=== PATIENT | male | born 1945 | race Caucasian/White ===

== ENCOUNTER → 2017-04-09 | Outpatient (CLI) | payer BC ==
[~2017-04-09] MED LIST: ATOR40TA PO; ATOR40TA59 PO; CHOL20002 PO; GLIM4TAB PO; GLIM4TAB2 PO; INSU100C4 SQ; INSU100I13 SQ; IOHEXOL 180 MG/ML 10 ML VIAL. ONE; LATA2.5D3 OP; LISI40TA PO; METF1000 PO; METF500T9 PO; PIOG30TA3 PO; PIOG30TA41 PO; methylPREDNISolone ACETATE 40 MG/ML VIAL. ONE
--- NOTE | 2017-04-09 18:30 | PAIN ---
DATE OF SERVICE: 04/09/2017 DIAGNOSES: 1. Lumbar radiculopathy. 2. Right hip joint pain with osteoarthritis. HISTORY OF PRESENT ILLNESS: The patient is a 71-year-old male who returns for followup status post right hip joint injection with about 60% improvement in the right hip, still significant pain in the back radiating to the posterior gluteus, posterior thigh, posterior lower leg to the ankle on the right side. The patient reports it is a 5 on a scale of 10 at its worst, average and at its least and is a 5 today. The patient reports aching, sharp, tight, dull, shooting, on and off intensity; worse with walking, standing, changing positions; better with lying down. Does not have any difficulty sleeping at night. He sleeps on his back and is sleeping for 8 hours without difficulty. The patient reports no new motor or sensory deficits, no new bowel or bladder incontinence but still significant pain with ambulation as noted. PHYSICAL EXAMINATION: VITAL SIGNS: Today, the patient's blood pressure is 129/73, pulse 77, respirations 18, temperature 98.5 degrees Fahrenheit. Height is 6 feet 4 inches, weight is 297 pounds. GENERAL: The patient is awake, alert, oriented, appropriate, very pleasant demeanor. HEENT: Head shows normocephalic, atraumatic. Extraocular movements are intact, symmetrical. Oral cavity: Mucous membranes moist and pink. Dentition is intact. NECK: Shows anterior throat supple without palpable lymphadenopathy noted. Swallow reflex is symmetrical. CHEST: Shows normal on inspection. Breath sounds are clear to auscultation bilaterally. HEART: Shows S1, S2 clear. ABDOMEN: Soft, nontender, nondistended. No palpable organomegaly. There is no rebound or guarding demonstrated. BACK: The patient's back shows spine grossly in midline. Normal appearing thoracic kyphosis and lumbar lordotic curvature. Lumbar paraspinous muscle shows some moderate tenderness with palpation, but symmetrical on inspection. Diffusely tender only in the low lumbar distribution, slightly more on the right side, but again without trigger points or radiation. No tenderness over the spinous processes, sacrum or sacroiliac regions. The patient has full rotational motion of lumbar spine without difficulty laterally as well as extension and flexion. EXTREMITIES: The patient's lower extremities show deep tendon reflexes 1+ in the patellar and tendo calcaneus tendons. Motor exam is strong with 5/5 dorsiflexion, extension, quadriceps and hamstring flexion. Peripheral pulses are 1+ posterior tibial. No peripheral edema is noted bilaterally. Options were discussed with the patient. The patient's old chart was reviewed as his current medication regimen and updated. Current review of systems is updated today as well. We will proceed with a lumbar epidural steroid injection today with fluoroscopic guidance. Risks were discussed including but not limited to bleeding, infection, possibility of epidural hematoma and subsequent neurological compromise, dural puncture, headaches, spinal cord and/or nerve damage, side effects of steroid medication and poor results regarding pain control. The patient understands and wished to proceed. The patient will return to clinic in approximately 2 weeks for followup. He was counseled on return appointment, activity level and side effects to be aware of. DIAGNOSES: 1. Lumbar radiculopathy. 2. Right hip joint pain with osteoarthritis. PROCEDURE: Lumbar epidural steroid injection, translaminar approach L5-S1 level using C-arm fluoroscopic guidance under sterile prep and drape using local anesthetic. MEDICATION INJECTED: A total of 120 mg Depo-Medrol plus 10 mL of preservative-free normal saline and 2 mL of Isovue for contrast. CONDITION AT DISCHARGE: Stable. The patient tolerated the procedure well, had no complications. ZACH KERR MD DR: SEDRICK/madhu JOB#: [id number] / [id number]
== END ==
LOC: MERGE 08:58 → PNCL 08:58
PROVIDERS: ATTEND Anesthesiology
DX: M54.16 Radiculopathy, lumbar region (principal); M16.11 Unilateral primary osteoarthritis, right hip
CPT/HCPCS: 62323; J1030

== ENCOUNTER → 2017-04-23 | Outpatient (CLI) | payer BC ==
[~2017-04-23] MED LIST changes: -IOHEXOL 180 MG/ML 10 ML VIAL. ONE; -methylPREDNISolone ACETATE 40 MG/ML VIAL. ONE
--- NOTE | 2017-04-23 11:21 | PAIN ---
DATE OF SERVICE: 04/23/2017 DIAGNOSES: 1. Lumbar radiculopathy. 2. Right hip joint pain with osteoarthritis. HISTORY OF PRESENT ILLNESS: The patient is a 71-year-old male who returns for followup status post right hip joint injection as well as lumbar epidural steroid injection. The patient reports after the epidural steroid injection, he has had 100% relief following about 1 day after the injection. The patient reports he is very pleased with the progress. He has been increasing the activity significantly with no pain whatsoever. The patient is sleeping well at night. No pain in the low back or legs, his right leg is completely resolved and he is very pleased. The patient reports he is sleeping well, has increased his activity, he has been going to the gym once again to the [facility], increased his activity gradually slowly but keeps testing it without any pain whatsoever. The patient reports his pain level is zero at all times average, worst and least. The patient reports it is zero today. No pain left in the low back or right leg. The patient reports no bowel or bladder incontinence or other complaints. PHYSICAL EXAMINATION: VITAL SIGNS: The patient's blood pressure 123/71, pulse 79, respirations 18, temperature is 98.8 degrees Fahrenheit, height is 6 feet 4 inches, weight is 292 pounds. GENERAL: The patient is awake, alert, oriented, appropriate, very pleasant demeanor. HEENT: Head shows normocephalic, atraumatic. Extraocular movements are intact, symmetrical. Oral cavity shows mucous membranes moist and pink. NECK: Shows anterior throat is supple. CHEST: Shows breath sounds clear to auscultation bilaterally. HEART: Shows S1, S2 clear. ABDOMEN: Soft, nontender, nondistended. BACK: Shows spine grossly midline. Normal appearing lumbar lordotic curvature. Lumbar paraspinous musculature shows symmetrical on inspection with palpation shows only very minimal tenderness with deep palpation only very mildly. Full rotational motion is demonstrated both laterally as well as extension and flexion of lumbar spine without pain or difficulty reported. EXTREMITIES: Lower extremities show deep tendon reflexes 1+ in the patellar and tendo calcaneus tendons are equal. Motor exam is strong with 5/5 dorsiflexion, extension, quadriceps and hamstring flexion and equal bilaterally. Options were discussed with the patient. The patient's old chart was reviewed as his current medication regimen updated. Current review of systems is updated today as well. We will hold on any further injections at this time as the patient is doing quite well. Encouraged him to increase his activity as tolerated, gradually and cautiously but to do what he feels comfortable. Also discussed increased activity at the patient's gym with a stationary bicycle as well as treadmill, which he has been doing and will increase this as tolerated. The patient will return to clinic on an as needed basis at this time. ZACH KERR MD DR: SEDRICK/madhu JOB#: [id number] / [id number]
== END | disposition home or self-care (01) ==
LOC: PNCL 08:47
PROVIDERS: ATTEND Anesthesiology
DX: M54.16 Radiculopathy, lumbar region (principal); M25.551 Pain in right hip
CPT/HCPCS: G0463

== ENCOUNTER → 2017-10-02 | Outpatient (CLI) | payer BC | END | disposition home or self-care (01) | LOC: RAD 08:01 | DX: M17.12 Unilateral primary osteoarthritis, left knee (principal); M25.462 Effusion, left knee; G89.29 Other chronic pain | CPT/HCPCS: 73721; 77073 ==

== ENCOUNTER → 2017-11-04 | Outpatient (CLI) | payer BC ==
[2017-11-04 09:54] LABS: PARTIAL THROMBOPLASTIN TIME 29 SEC (24-38); PROTHROMBIN TIME PATIENT 12.5 SEC (11.7-14.0)
[2017-11-04 11:31] LABS: SEDIMENTATION RATE 9 (0-15)
[2017-11-05 09:19] LABS: MRSA BY PCR Negative (Negative)
== END | disposition home or self-care (01) ==
LOC: SURGPAT 13:12
DX: Z01.818 Encounter for other preprocedural examination (principal); M17.12 Unilateral primary osteoarthritis, left knee; I10 Essential (primary) hypertension; E11.9 Type 2 diabetes mellitus without complications
CPT/HCPCS: 36415; 85610; 85651; 85730; 87641

== ENCOUNTER → 2019-12-09 | Outpatient (CLI) | payer BC ==
[2017-11-20 11:56] VITALS: BP 159/73
[~2019-12-09] MED LIST changes: +ACET325T9 PO; +AMLO10TA4 PO; +ASPI-630 PO; -CHOL20002 PO; +CHOL200059 PO; -GLIM4TAB2 PO; +GLIM4TAB8 PO; +IBUP-1007 PO; +INSU100V11 IJ; -LATA2.5D3 OP; +LATA2.5D3 OU; +LISI-130 PO; -LISI40TA PO; +MELO15TA6 PO; +METF-658 PO; -METF500T9 PO; -PIOG30TA3 PO; +PIOG30TA62 PO; +WARF5TAB2 PO
--- NOTE | 2019-12-09 15:48 | RAD ---
PROCEDURE: CERVICAL SPINE 2-3V, SHOULDER 2+V RIGHT, SHOULDER 2+V LEFT STUDY DATE: 12/09/2019 CLINICAL INDICATION / HISTORY: Reason: NECK PAIN / Spl. Instructions: / History: . TECHNIQUE: 3 VIEWS: AP, lateral and odontoid COMPARISON: None FINDINGS: Alignment is within normal limits. There is preservation of the normal cervical lordosis. Vertebral body heights and disc spaces are well maintained. Endplate osteophytic spurs are present multiple levels in the cervical spine. The atlantoaxial joint is well maintained. No fracture or subluxation is identified. Prevertebral and paraspinous soft tissues are unremarkable. IMPRESSION: Mild endplate degenerative changes in the cervical spine with no evidence of fracture or subluxation in the cervical spine. PROCEDURE: CERVICAL SPINE 2-3V, SHOULDER 2+V RIGHT, SHOULDER 2+V LEFT STUDY DATE: 12/09/2019 CLINICAL INDICATION / HISTORY: Right shoulder pain. TECHNIQUE: AP internal and external rotation views with a Y- view were obtained. COMPARISON: None FINDINGS: No fracture, dislocation or bone destruction is identified. There are moderate degenerative changes at the right AC joint. No calcifications are seen in relation to the rotator cuff insertion. There is osteophytic spurring at the inferior glenoid rim. IMPRESSION: Degenerative changes in the right acromioclavicular and glenohumeral joints. No fracture or dislocation. PROCEDURE: CERVICAL SPINE 2-3V, SHOULDER 2+V RIGHT, SHOULDER 2+V LEFT STUDY DATE: 12/09/2019 CLINICAL INDICATION / HISTORY: Reason: NECK PAIN / Spl. Instructions: / History: . TECHNIQUE: AP internal and external rotation views with a Y- view were obtained. COMPARISON: None FINDINGS: No fracture, dislocation or bone destruction is identified. There are mild degenerative changes at the left AC joint. Osteophytic spurring of the inferior aspect of the left glenoid is also seen. No calcifications are seen in relation to the rotator cuff insertion. IMPRESSION: Degenerative changes of the left acromioclavicular and glenohumeral joints. No fracture or dislocation. Electronically signed by: Dipika French MD (12/09/2019 3:45 PM) [id number]
== END | disposition home or self-care (01) ==
LOC: RAD 11:12
PROVIDERS: ATTEND Family Medicine
DX: M47.812 Spondylosis without myelopathy or radiculopathy, cervical region (principal); M25.511 Pain in right shoulder
CPT/HCPCS: 72040; 73030

== ENCOUNTER → 2020-07-11 | Outpatient (CLI) | payer BC, MEDICARE ==
[2017-11-20 11:56] VITALS: BP 159/73
[~2020-07-11] MED LIST changes: +AMLO-186 PO
--- NOTE | 2020-07-11 13:18 | KCIC ---
EXAMINATION: XR PELVIS 1-2V CLINICAL HISTORY: SCREENING PRIOR TO MRI TODAY PER STANDING PROTOCOL. Eval for radiation seeds prior to MR today. TECHNIQUE: XR PELVIS 1-2V Number of Images/Views: 1 COMPARISON: None FINDINGS: 2 tiny linear metallic densities projected over the inferior pubic ramus, likely related to placement of prostate fiducials. Left hip arthroplasty with adjacent heterotopic ossification and degenerative changes in the right hi p, incompletely evaluated. Pubic symphysis maintained. Degenerative changes bilateral SI joints. Part ially visualized lumbar degenerative changes. Linear calcifications projected over the soft tissues o f the medial proximal right thigh. IMPRESSION: 2 tiny linear metallic densities projected over the pelvis, likely related to placement of prostate f iducials. Electronically signed by: Jonny Balbuena DO (07/11/2020 1:15 PM) [id number]
--- NOTE | 2020-07-11 13:51 | KCIC ---
EXAMINATION: Magnetic resonance imaging (MRI) of the lumbar spine without contrast 07/11/2020 10:10 AM HISTORY: Low back pain. TECHNIQUE: Multiplanar multi-weighted MRI of the lumbar spine was performed without intravenous contr ast using the standard lumbar spine protocol. Contrast information: None administered. COMPARISON: None available. FINDINGS: There is 3 mm anterolisthesis of L4 on L5. Vertebral body heights are maintained. Low marrow signal i ntensity is identified on T1-weighted images involving the visualized thoracic spine and upper lumbar spine to the L3 vertebral level. There is T1 signal hyperintensity throughout the L4, L5 and sacral levels. There is a T1 hypointense lesion involving the inferior L5 vertebral body. This measures 1.0 cm and is contiguous with inferior endplate. Conus medullaris terminates at T12. 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 Findings are exacerbated by epidural lipom atosis. Abdominal aorta is normal in caliber. No suspicious sacral abnormality is identified. L1-L2: Mild disc bulge. Mild facet arthropathy. No neuroforaminal stenosis. Mild spinal canal stenosi s. L2-L3: There is a disc bulge with central disc protrusion. Mild facet arthropathy. Mild bilateral cortez roforaminal stenosis. Moderate spinal canal stenosis, exacerbated by epidural lipomatosis. L3-L4: There is a circumferential disc bulge. Mild facet arthropathy with ligamentum flavum infolding . Mild bilateral neuroforaminal stenosis. Moderate to severe spinal canal stenosis, exacerbated by ep idural lipomatosis. Thecal sac measures 4.5 mm in AP dimension. L4-L5: There is a moderate circumferential disc bulge. There is moderate facet arthropathy with fluid in the facet joints and ligamentum flavum infolding. Moderate neuroforaminal stenosis. Severe spinal canal stenosis. L5-S1: There is a large circumferential disc bulge. Moderate facet arthropathy. There is central disc extrusion. There is moderate spinal canal stenosis. Moderate bilateral neuroforaminal stenosis. IMPRESSION: 1. Abnormally low T1 signal involving the marrow of the lower thoracic spine and upper lumbar spine. Correlate with any radiation treatment to the lumbosacral region. Alternatively, chronic anemia, obes ity or smoking history. Have similar appearance. There is an indeterminate T1 hypointense lesion at L 5. Further characterization with bone scan could be of benefit. Neoplastic etiology remains in the di fferential. 2. 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 Electronically signed by: Susana Austin MD (07/11/2020 1:48 PM) [id number]
== END ==
LOC: KCIC MRI 09:50
PROVIDERS: ATTEND Family Medicine
DX: C61 Malignant neoplasm of prostate (principal); M54.31 Sciatica, right side; M47.816 Spondylosis without myelopathy or radiculopathy, lumbar region; M46.1 Sacroiliitis, not elsewhere classified; M16.11 Unilateral primary osteoarthritis, right hip
CPT/HCPCS: 72148; 72170

== ENCOUNTER → 2020-07-19 | Outpatient (CLI) | payer MEDICARE ==
[2017-11-20 11:56] VITALS: BP 159/73
[~2020-07-19] MED LIST changes: +IOHEXOL 180 MG/ML 10 ML VIAL. ONE; +methylPREDNISolone ACETATE 40 MG/ML VIAL. ONE; +methylPREDNISolone ACETATE 80 MG/ML VIAL. ONE
--- NOTE | 2020-07-19 12:57 | PDOC4 ---
PROCEDURE Procedure Patient was consented for lumbar epidural steroid injection. Risks were dis cussed including but not limited to: Bleeding, infection, possibility of epidural hematoma and subsequent neurological compromise, dural puncture, headaches, spinal cord and/or nerve damage, side effects of steroid medication, and poor results regarding pain control. Patient understands and wished to proceed. Procedure is lumbar epidural steroid injection under local anesthetic using sterile prep and drape at the L5-S1 level using C-arm fluoroscopic guidance in both AP and lateral views medications injected is 120 mg Depo-Medrol + 10 mL preservative-free normal saline and 2 mL contrast- condition at discharge is stable patient tolerated procedure well had no complications. ZACH KERR MD Jul 19, 2020 12:57
--- NOTE | 2020-07-19 12:57 | PDOC1 ---
INITIAL PAIN CONSULT DATE OF SERVICE: DOS: DATE: 07/19/20 TIME: 12:52 CHIEF COMPLAINT: Chief Complaint: Low back and bilateral lower extremity pain HISTORY OF PRESENT ILLNESS: 75-year-old male presents with history of pain low back and bilateral lower extremities for many years worse over the past 30 days or so however gradually increasing not result of any specific injury or accident that he is aware of is going on for many years. Patient reports the pain is increasing with walking standing changing positions better with sitting or laying down has been waking from sleep about 3-4 times at night patient reports he does not affect his bowel bladder control but does affect his ability to walk he feels he is unstable though he is not using any assistive devices to ambulate. Patient is had physical therapy in the past but many years ago is still doing some stretching and strength exercises and goes to the [facility] with his multiple times during the week to exercise and is still exercising and stretching. Patient describes the pain is in the low back and the bilateral posterior gluteus posterior thighs posterior calves and feet where he feels he has rocks in his shoes especially on the right leg. Patient describes pain is constant sharp stabbing throbbing shooting with numbness and tingling the legs dull aching across the low back cold at times in the back and legs and burning in the back as well. Patient rates his disability rating 0-10 10 being the worst as a 8 with family home responsibilities social activity occupation 10 with recreational activities 5 with self-care and 0 with life support activities except for sleeping which is at night. Patient not had any recent diagnostic studies although did have some plain films several years ago and shows significant degenerative spacing and degenerative disc disease in the lumbar spine. Patient is been taking [id number] Tylenol as well as ibuprofen only with minimal decrease in pain. PAST MEDICAL HISTORY: PMH: Tension, type 2 diabetes, prostate cancer status post radiation, arthritis PREVIOUS SURGERIES: Past Surgical Hx: Left hip replacement 2007, left knee replacement, right knee scope CURRENT MEDICATIONS: Current Meds: Active Scripts Medications Dose Route/Sig Max Daily Dose Days Date Category Amlodipine Besylate 5 Mg Tablet 5 Mg PO DAILY 07/19/20 Reported Metformin Hcl Er (Metformin Hcl) 500 Mg Tab.er.24h 1,000 Mg PO BIDWMEALS 03/19/17 Reported Atorvastatin Calcium 40 Mg Tablet 40 Mg PO DAILY 03/19/17 Reported Latanoprost 2.5 Ml Drops 1 Drop OU HS 03/19/17 Reported Pioglitazone Hcl 30 Mg Tablet 30 Mg PO DAILY 04/05/14 Reported Vitamin D-3 (Cholecalciferol (Vitamin D3)) 2,000 Unit Tablet 2,000 Unit PO 04/05/14 Reported Lisinopril 40 Mg Tablet 40 Mg PO DAILY 04/05/14 Reported ALLERGIES; Allergies: Coded Allergies: No Known Allergies (Verified Allergy, Unknown, 11/18/17) FAMILY HISTORY: Family Hx: Diabetes SOCIAL HISTORY: Social Hx: Patient is under alcohol does not smoke not use any illegal illicit recreational drugs is lives with his spouse lives locally in [facility] and is currently retired. REVIEW OF SYSTEMS: ROS: Positive for those items mentioned in history of present illness, all systems are reviewed, otherwise negative ,and are complete full and well-documented on patient's chart. PHYSICAL EXAM: VS: Blood pressure is 166/91 pulse 87 respirations 18 temperature 97.3 F height 6 feet 9 inches weight is 312 pounds PE: PHYSICAL EXAMINATION: GENERAL: The patient is awake, alert, oriented, appropriate, very pleasant demeanor HEENT: Shows normocephalic, atraumatic. Extraocular movements are intact and symmetrical. Oral cavity: Mucous membranes moist and pink. NECK: Shows anterior throat supple without palpable lymphadenopathy noted. Swallow reflex symmetrical. CHEST: Shows normal on inspection. Breath sounds are clear bilaterally, no rales rhonchi or wheezes auscultated.. HEART: Shows S1, S2 clear. No murmurs auscultated. ABDOMEN: Soft, nontender, nondistended obese. No palpable organomegaly is noted. No rebound or guarding demonstrated. BACK: Shows spine grossly in the midline. Normal-appearing cervical lordotic curvature. There is slightly increased thoracic kyphosis, some minor flattening of the lumbar lordotic curvature. Lumbar paraspinous muscles show symmetrical on inspection, on palpation shows some moderate tenderness diffusely throughout the upper, middle and lower distribution of the paraspinous muscles bilaterally and also into the lower thoracic paraspinous musculature, firm and tender, but without specific trigger points, without radiation of pain. The patient has good rotational motion of the lumbar spine, both laterally as well as extension and flexion without significant difficulty. No tenderness over the spinous processes, sacrum or sacroiliac regions. EXTREMITIES: Lower extremities show deep tendon reflexes 1+ in the patellar and tendo calcaneus tendons. Motor exam is 5 on a scale of 5 with right dorsiflexion, extension, quadriceps and hamstring flexion and 5/5 on the left. Peripheral pulses are 1+ posterior tibial. No peripheral edema is noted bilaterally. Lower extremities are warm and dry to touch, equal in color and appearance. Straight leg raise noted to be mildly positive on the right about 40 degrees, left side is negative. Gaenslen's and Lawson's maneuvers are negative bilaterally. The patient is able to stand, stand on his toes with some mild loss of balance with walking does appear to favor the right lower extremity slightly but does not use any assistive devices to ambulate such as canes or walkers. SKIN: Shows warm and dry, good turgor. No edema. No sores, rashes or bruising throughout. IMPRESSION: Impression: 75-year-old male with long history low back bilateral lower extremity pain and radicular fashion Plain films showing significant degenerative changes lumbar spine 2 diabetes Hypertension Arthritis Prostate cancer history Plan: Options discussed with the patient including conservative medical management physical therapies and interventional techniques. Patient would like to pursue interventional techniques. We discussed a lumbar epidural steroid injection using description as well as anatomical models to describe the procedure. Risks were discussed including but not limited to: Bleeding, infection, possibility of epidural hematoma and subsequent neurological compromise, dural puncture, headaches, spinal cord and/or nerve damage, side effects of steroid medication, and poor results regarding pain control. Patient understands and wished to proceed. Patient will return to the clinic in approximate 2 weeks for follow-up, was counseled as return appointment activity level and side effects to be aware of. Procedure is lumbar epidural steroid injection under local anesthetic using sterile prep and drape at the L5 is level using C-arm fluoroscopic guidance in both AP and lateral views medications injected is 120 mg Depo-Medrol + 10 mL preservative-free normal saline and 2 mL contrast- condition at discharge is stable patient tolerated procedure well had no complications. ZACH KERR MD Jul 19, 2020 12:57
== END | disposition home or self-care (01) ==
LOC: PNCL 09:39
PROVIDERS: ATTEND Anesthesiology
DX: M54.5 Low back pain (principal); M79.605 Pain in left leg; M79.604 Pain in right leg; E11.9 Type 2 diabetes mellitus without complications; M19.90 Unspecified osteoarthritis, unspecified site; I10 Essential (primary) hypertension; E78.00 Pure hypercholesterolemia, unspecified; E11.42 Type 2 diabetes mellitus with diabetic polyneuropathy; Z85.46 Personal history of malignant neoplasm of prostate; Z79.899 Other long term (current) drug therapy; Z98.890 Other specified postprocedural states; Z79.84 Long term (current) use of oral hypoglycemic drugs; Z83.3 Family history of diabetes mellitus
CPT/HCPCS: 62323; J1030; J1040; Q9965; 77002

== ENCOUNTER → 2020-08-04 | Outpatient (CLI) | payer MEDICARE ==
[2017-11-20 11:56] VITALS: BP 159/73
--- NOTE | 2020-08-04 10:21 | PDOC4 ---
PROCEDURE Procedure Patient was consented for lumbar epidural steroid injection. Risks were dis cussed including but not limited to: Bleeding, infection, possibility of epidural hematoma and subsequent neurological compromise, dural puncture, headaches, spinal cord and/or nerve damage, side effects of steroid medication, and poor results regarding pain control. Patient understands and wished to proceed. Procedure is lumbar epidural steroid injection under local anesthetic using sterile prep and drape at the L5-S1 level using C-arm fluoroscopic guidance in both AP and lateral views medications injected is 120 mg Depo-Medrol + 10 mL preservative-free normal saline and 2 mL contrast- condition at discharge is stable patient tolerated procedure well had no complications. ZACH KERR MD Aug 04, 2020 10:21
--- NOTE | 2020-08-04 10:21 | PDOC ---
Progress Note - Pain Clinic Date of Service: DOS: DATE: 08/04/20 TIME: 10:14 Diagnosis: Dx: Lumbar radiculopathy with lumbar degenerative disc disease History or Present Illness: HPI: 75-year-old male returns follow-up status post lumbar epidural steroid injection x1. Patient reports about 75% improvement in the low back and bilateral lower extremities. Patient reports the spasticity is still present on the left but not the right he is increasing his activity with greater distance walking doing household activities travel with greater ease and comfort patient reports the pain is still in the low back and bilateral lower extremities posterior gluteus posterior thighs posterior calves and in the feet but much improved patient reports is an aching pain that is described as sharp and dull alternating the low back with some shooting pain the lower extremities tingling and burning at times can be radiating constant with extended standing but most times he is doing fairly well patient reports occasionally waking him from sleep at night but not every night patient reports no new motor or sensory deficits no new bowel or bladder incontinence, or other complaints. Physical Exam: VS: Blood pressure is 158/78 pulse 88 respirations 18 temperature 97.9 F weight is 275 pounds PE: PHYSICAL EXAMINATION: GENERAL: The patient is awake, alert, oriented, appropriate, very pleasant demeanor HEENT: Shows normocephalic, atraumatic. Extraocular movements are intact and symmetrical. Oral cavity: Mucous membranes moist and pink. NECK: Shows anterior throat supple without palpable lymphadenopathy noted. Swallow reflex symmetrical. CHEST: Shows normal on inspection. Breath sounds are clear bilaterally. HEART: Shows S1, S2 clear. No murmurs auscultated. ABDOMEN: Soft, nontender, nondistended. No palpable organomegaly is noted. No rebound or guarding demonstrated. BACK: Shows spine grossly in the midline. Normal-appearing cervical lordotic curvature. There is increased thoracic kyphosis, some minor flattening of the lumbar lordotic curvature. Lumbar paraspinous muscles show symmetrical on inspection, on palpation shows some moderate tenderness diffusely throughout the upper, middle and lower distribution of the paraspinous muscles without specific trigger points, without radiation of pain. The patient has good rotational motion of the lumbar spine, both laterally as well as extension and flexion without significant difficulty. No tenderness over the spinous processes, sacrum or sacroiliac regions. EXTREMITIES: Lower extremities show deep tendon reflexes 1+ in the patellar and tendo calcaneus tendons. Motor exam is 5 on a scale of 5 with right dorsiflexion, extension, quadriceps and hamstring flexion and 5/5 on the left. Peripheral pulses are 1+ posterior tibial. No peripheral edema is noted bilaterally. Lower extremities are warm and dry to touch, equal in color and appearance. SKIN: Shows warm and dry, good turgor. No edema. No sores, rashes or bruising throughout. Procedure: Procedure: Options were discussed with the patient. Patient's old chart was reviewed his his current medication regimen updated current review of systems updated today as well. We will proceed with a second in the series lumbar epidural steroid injection today with fluoroscopic guidance. Risks were discussed including but not limited to: Bleeding, infection, possibility of epidural hematoma and subsequent neurological compromise, dural puncture, headaches, spinal cord and/or nerve damage, side effects of steroid medication, and poor results regarding pain control. Patient understands and wished to proceed. Patient will return to clinic in approximate 2 weeks for follow-up, was counseled as return appointment activity level and side effects to be aware of. Medication Injected: Med Injected: Procedure is lumbar epidural steroid injection under local anesthetic using sterile prep and drape at the L5-S1 level using C-arm fluoroscopic guidance in both AP and lateral views medications injected is 120 mg Depo-Medrol + 10 mL preservative-free normal saline and 2 mL contrast- condition at discharge is stable patient tolerated procedure well had no complications. Condition at Discharge: Condition at Discharge: Condition at discharge is stable, patient tolerated the procedure well and had no complications. ZACH KERR MD Aug 04, 2020 10:21
== END | disposition home or self-care (01) ==
LOC: PNCL 09:37
PROVIDERS: ATTEND Anesthesiology
DX: M51.16 Intervertebral disc disorders with radiculopathy, lumbar region (principal); I10 Essential (primary) hypertension; E11.42 Type 2 diabetes mellitus with diabetic polyneuropathy; E78.00 Pure hypercholesterolemia, unspecified; M19.90 Unspecified osteoarthritis, unspecified site; Z79.899 Other long term (current) drug therapy; Z98.890 Other specified postprocedural states
CPT/HCPCS: 62323; J1030; J1040; Q9965; 77002

== ENCOUNTER → 2020-08-18 | Outpatient (CLI) | payer MEDICARE ==
[2017-11-20 11:56] VITALS: BP 159/73
--- NOTE | 2020-08-18 11:25 | PDOC ---
Progress Note - Pain Clinic Date of Service: DOS: DATE: 08/18/20 TIME: 11:16 Diagnosis: Dx: Lumbar radiculopathy lumbar degenerative disc disease History or Present Illness: HPI: 75-year-old male returns to follow-up status post lumbar epidurals or injection x2. Patient reports only about 20% improvement after last injection was about 75% after the first but the pain is returning in the low back bilateral lower extremities mostly the posterior gluteus posterior lateral thigh lateral anterior thighs posterior calves and feet patient reports a burning and tingling in the feet as well patient reports the pain is a 6 on scale 10 is worse over the past week 6 on average 6 its least is a 6 today patient scribes pain is sharp and tight in the back shooting in the lower extremities burning in the feet tingling in the legs cramping and stabbing in the back as well can be radiating constant can be severe on and off in intensity worse with walking standing changing positions initially is doing better with walking and doing household activities but now is becoming much more painful patient reports his feet wake him up at night because of the pain is a burning or feeling cold. Patient reports no new motor or sensory deficits no new bowel or bladder incontinence or other complaints. Physical Exam: VS: Pressure is 161/78 pulse 70 respirations 18 temperature 98.1 F height is 6 feet 9 inches weight is 306 pounds PE: PHYSICAL EXAMINATION: GENERAL: The patient is awake, alert, oriented, appropriate, very pleasant demeanor HEENT: Shows normocephalic, atraumatic. Extraocular movements are intact and symmetrical. Oral cavity: Mucous membranes moist and pink. Dentition is intact. NECK: Shows anterior throat supple without palpable lymphadenopathy noted. Swallow reflex symmetrical. CHEST: Shows normal on inspection. Breath sounds are clear bilaterally. HEART: Shows S1, S2 clear. No murmurs auscultated. ABDOMEN: Soft, nontender, nondistended. No palpable organomegaly is noted. No rebound or guarding demonstrated. BACK: Shows spine grossly in the midline. Normal-appearing cervical lordotic curvature. There is slightly increased thoracic kyphosis, some minor flattening of the lumbar lordotic curvature. Lumbar paraspinous muscles show symmetrical on inspection, on palpation shows some moderate tenderness diffusely throughout the upper, middle and lower distribution of the paraspinous muscles without specific trigger points, without radiation of pain. The patient has good rotational motion of the lumbar spine, both laterally as well as extension and flexion without significant difficulty. EXTREMITIES: Lower extremities show deep tendon reflexes 1+ in the patellar and tendo calcaneus tendons. Motor exam is 5 on a scale of 5 with right dorsi flexion, extension, quadriceps and hamstring flexion and 5/5 on the left. Peripheral pulses are 1 posterior tibial. No peripheral edema is noted bilaterally. Lower extremities are warm and dry to touch, equal in color and appearance. SKIN: Shows warm and dry, good turgor. No edema. No sores, rashes or bruising throughout. Procedure: Procedure: Options were discussed with the patient. Patient chart reviews his current medication regimen updated current review systems updated today as well. We will proceed with a third in the series lumbar epidural steroid injection today with fluoroscopic guidance. Risks were discussed including but not limited to: Bleeding, infection, possibility of epidural hematoma and subsequent neur ological compromise, dural puncture, headaches, spinal cord and/or nerve damage, side effects of steroid medication, and poor results regarding pain control. Patient understands and wished to proceed. Patient return to clinic in approximate 2 weeks for follow-up, was counseled as to return appointment to fill and side effects to be aware of. Medication Injected: Med Injected: Procedure is lumbar epidural steroid injection under local anesthetic using sterile prep and drape at the L4-5 level using C-arm fluoroscopic guidance in both AP and lateral views medications injected is 120 mg Depo-Medrol + 10 mL preservative-free normal saline and 2 mL contrast- condition at discharge is stable patient tolerated procedure well had no complications. Condition at Discharge: Condition at Discharge: Condition at discharge stable, patient alert procedure well and had no complications. ZAHC KERR MD Aug 18, 2020 11:25
--- NOTE | 2020-08-18 11:26 | PDOC4 ---
PROCEDURE Procedure He was consented for lumbar epidural steroid injection. Risks were discussed including but not limited to: Bleeding, infection, possibility of epidural hematoma and subsequent neurological compromise, dural puncture, headaches, spinal cord and/or nerve damage, side effects of steroid medication, and poor results regarding pain control. Patient understands and wished to proceed. Procedure is lumbar epidural steroid injection under local anesthetic using st erile prep and drape at the L4 5 level using C-arm fluoroscopic guidance in both AP and lateral views medications injected is 120 mg Depo-Medrol +[]mL preservative-free normal saline and 2 mL contrast- condition at discharge is stable patient tolerated procedure well had no complications. ZACH KERR MD Aug 18, 2020 11:26
== END | disposition home or self-care (01) ==
LOC: PNCL 10:07
PROVIDERS: ATTEND Anesthesiology
DX: M51.16 Intervertebral disc disorders with radiculopathy, lumbar region (principal); I10 Essential (primary) hypertension; E78.00 Pure hypercholesterolemia, unspecified; E11.42 Type 2 diabetes mellitus with diabetic polyneuropathy; M19.90 Unspecified osteoarthritis, unspecified site; Z79.84 Long term (current) use of oral hypoglycemic drugs; Z79.899 Other long term (current) drug therapy; Z98.890 Other specified postprocedural states
CPT/HCPCS: 62323; J1030; J1040; Q9965

== ENCOUNTER → 2020-09-13 | Outpatient (CLI) | payer MEDICARE ==
[2017-11-20 11:56] VITALS: BP 159/73
[~2020-09-13] MED LIST changes: -IOHEXOL 180 MG/ML 10 ML VIAL. ONE; -methylPREDNISolone ACETATE 40 MG/ML VIAL. ONE; -methylPREDNISolone ACETATE 80 MG/ML VIAL. ONE
--- NOTE | 2020-09-13 15:06 | RAD ---
US DPLX ARTR EXTREM LOWER BILAT Indication: Reason: CLAUDICATION / Spl. Instructions: / History: Comparison: None. Procedure: Real-time grayscale, color flow Doppler, and Doppler spectral waveform analysis of the art erial system of the lower extremity is performed. Findings: Right lower extremity: Triphasic or biphasic throughout the majority of the right lower extremity. Mo nophasic waveform within the right dorsalis pedis artery. Right peroneal and anterior tibial arteries not identified. Moderate atheromatous plaque. No significant velocity elevation. Left lower extremity: Triphasic or biphasic waveforms throughout the left lower extremity. Peroneal a rtery not identified. Elevated velocity within the left common femoral artery measures 180 cm/s. Mode rate atheromatous plaque. IMPRESSION: 1. Moderate atheromatous plaque bilaterally. 2. Bilateral peroneal and right anterior tibial arteries not identified, may relate to slow flow or occlusion. CT angiogram can further assess as clinically warranted. 3. Mildly elevated velocity within the left common femoral artery, may indicate 30-49 percent stenos is. 4. Monophasic waveform within the right dorsalis pedis artery, may indicate proximal stenosis. Electronically signed by: Robert Holden DO (09/13/2020 3:03 PM) [id number]
== END ==
LOC: US 06:39
PROVIDERS: ATTEND Family Medicine
DX: I70.203 Unspecified atherosclerosis of native arteries of extremities, bilateral legs (principal)
CPT/HCPCS: 93925

== ENCOUNTER → 2020-10-07 | Outpatient (CLI) | payer BC, MEDICARE ==
[2017-11-20 11:56] VITALS: BP 159/73
--- NOTE | 2020-10-07 13:41 | CARD ---
MR#: [id number] Date of Study: 10/07/2020 Ordering Physician: MALLORY DONNELLY, Referring Physician: MALLORY DONNELLY, Tech: Olivia Victor, [facility] APPROVED REPORT EXAM: Two-dimensional and M-mode echocardiogram with Doppler and color Doppler. Other Information Quality : AverageHR: 76bpm INDICATION Hypertension/HCVD RISK FACTORS Hyperlipidemia Diabetes 2D DIMENSIONS RVDd3.1 (2.9-3.5cm)Left Atrium(2D)3.9 (1.6-4.0cm) IVSd1.2 (0.7-1.1cm)Aortic Root(2D)3.6 (2.0-3.7cm) LVDd4.7 (3.9-5.9cm)LVOT Diameter2.2 (1.8-2.4cm) PWd1.1 (0.7-1.1cm)LVDs3.0 (2.5-4.0cm) FS (%) 35.6 %SV66.9 ml LVEF(%)65.1 (>50%) Aortic Valve AoV Peak Wolfgang.139.6cm/sAoV VTI28.1cm AO Peak GR.7.8mmHgLVOT Peak Wolfgang.99.7cm/s LVOT VTI 24.37cmAO Mean GR.4mmHg JULIETH (VMAX)1.41dv1TPC (VTI)3.21cm2 Pulmonary Valve PV Peak Spncudsh690.7cm/sPV Peak Grad.4mmHg Pulmonary Vein S1 Jfdkjjub68.1cm/sD2 Cptpfeki12.5cm/s PVa [id number] LEFT VENTRICLE The left ventricle is normal size. There is mild concentric left ventricular hypertrophy. The left ve ntricular systolic function is normal and the ejection fraction is within normal range. The Ejection Fraction is 60-65%. There is normal LV segmental wall motion. Transmitral Doppler flow pattern is Gra de II-pseudonormal filling dynamics. RIGHT VENTRICLE The right ventricle is normal size. There is normal right ventricular wall thickness. The right ventr icular systolic function is normal. ATRIA The left atrium size is normal. The right atrium size is normal. The interatrial septum is intact wit h no evidence for an atrial septal defect or patent foramen ovale as noted on 2-D or Doppler imaging. AORTIC VALVE The aortic valve is normal in structure and function. Doppler and Color Flow revealed no significant aortic regurgitation. There is no significant aortic valvular stenosis. Calculated aortic valve area is 3.17 cm2 with maximum pressure gradient of 9 mmHg and mean pressure gradient of 5 mmHg. MITRAL VALVE The mitral valve is normal in structure and function. There is no evidence of mitral valve prolapse. There is no mitral valve stenosis. Doppler and Color Flow revealed no mitral valve regurgitation note d. TRICUSPID VALVE The tricuspid valve is normal in structure and function. Doppler and Color Flow revealed trace tricus pid regurgitation. There is no tricuspid valve stenosis. PULMONIC VALVE The pulmonic valve is not well visualized. Doppler and Color Flow revealed trace pulmonic valvular re gurgitation. There is no pulmonic valvular stenosis. GREAT VESSELS The aortic root is normal in size. The IVC is normal in size and collapses >50% with inspiration. PERICARDIAL EFFUSION There is no evidence of significant pericardial effusion. Critical Notification Critical Value: No <Conclusion> The left ventricular systolic function is normal and the ejection fraction is within normal range. Th e Ejection Fraction is 60-65%. There is normal LV segmental wall motion. Signed by : Mallory Donnelly, Electronically Approved : 10/07/2020 13:40:28
== END ==
LOC: ECHO 09:40
PROVIDERS: ATTEND Internal Medicine Cardiovascular Disease
DX: I11.9 Hypertensive heart disease without heart failure (principal)
CPT/HCPCS: 93306

== ENCOUNTER → 2020-10-24 | Outpatient (CLI) | payer MEDICARE ==
[2017-11-20 11:56] VITALS: BP 159/73
--- NOTE | 2020-10-24 14:54 | KCIC ---
MR CERVICAL SPINE WO DATE: 10/24/2020 12:46 PM INDICATION: CERVICAL STENOSIS. Eval for cervical stenosis prior to Lumbar surgery. TECHNIQUE: Multiplanar multisequence magnetic resonance imaging of the cervical spine was performed w ithout administration of intravenous contrast using the standard cervical spine protocol. COMPARISON: None. FINDINGS: The cervical spine is normally aligned. No acute fracture. Moderate multilevel degenerative disc mikayla iccation and disc height loss. Bone marrow signal intensity is normal. The spinal cord is normal in signal intensity. On the limited views of the cranial cavity and brain, the cerebellum and shawnee have normal morphology and signal characteristics. No Chiari malformation. No soft tissue abnormality. Normal signal voids are present in the vertebral arteries. C2-3: Uncovertebral hypertrophy. Mild right neural foraminal narrowing. No spinal canal stenosis. C3-4: Disc osteophyte complex. Uncovertebral hypertrophy. Mild right facet arthropathy moderate bilat eral neural foraminal narrowing. Mild spinal canal stenosis. C4-5: Disc osteophyte complex. Uncovertebral hypertrophy. Moderate facet arthropathy. Moderate bilate ral neural foraminal narrowing. No spinal canal stenosis. C5-6: Disc osteophyte complex. Uncovertebral hypertrophy. Mild facet arthropathy. Mild bilateral neur al foraminal narrowing. Mild spinal canal stenosis. C6-7: Disc osteophyte complex. Uncovertebral hypertrophy. Mild facet arthropathy. Moderate right and moderate left neural foraminal narrowing. Moderate spinal canal stenosis. C7-T1: Mild facet arthropathy. No significant spinal canal stenosis or neural foraminal narrowing. IMPRESSION: Moderate cervical spondylosis, detailed level by level above. Electronically signed by: Alberto Blankenship MD (10/24/2020 2:52 PM) [id number]
== END ==
LOC: KCIC MRI 12:31
PROVIDERS: ATTEND Neurological Surgery
DX: M47.813 Spondylosis without myelopathy or radiculopathy, cervicothoracic region (principal); M25.78 Osteophyte, vertebrae
CPT/HCPCS: 72141

== ENCOUNTER → 2020-10-25 | Outpatient (CLI) | payer MEDICARE ==
[2017-11-20 11:56] VITALS: BP 159/73
[~2020-10-25] MED LIST changes: +CONTRAST GIVEN. MC PRN; +IOHEXOL 350 MG/ML 100 ML VIAL. IV ONE
[2020-10-25 09:57] LABS: GFR 72.6
== END ==
LOC: CT 08:57
PROVIDERS: ATTEND Family Medicine
DX: I70.202 Unspecified atherosclerosis of native arteries of extremities, left leg (principal)
CPT/HCPCS: 36415; 82565; 84520

== ENCOUNTER → 2020-10-26 | Day surgery (SDC) | payer MEDICARE ==
[2017-11-20 11:56] VITALS: BP 159/73
[~2020-10-26] MED LIST changes: -CONTRAST GIVEN. MC PRN
--- NOTE | 2020-10-26 16:15 | RAD ---
CT angiography of the abdomen, pelvis, lower extremities 10/26/2020 INDICATION: Femoral artery stenosis COMPARISON STUDY: Bilateral lower extremity arterial duplex ultrasound September 13, 2020 TECHNIQUE: Multidetector CT imaging of the abdomen, pelvis, lower extremities was performed following the administration of IV contrast. 3-D reconstructions of abdominal, pelvic, lower extremity vascula ture were created on an independent workstation. FINDINGS: . The abdominal aorta demonstrates no evidence of aneurysm or dissection. Mild atherosclerotic vascular calcification of the abdominal aorta is seen. The celiac artery, SMA, renal arteries, and ZURI are pa tent. The right common iliac artery, internal iliac artery, and external iliac artery are patent. The right common femoral artery is patent. Right profunda artery is patent. The right SFA is patent. The right popliteal artery is patent. The right peroneal artery is patent. Right posterior tibial artery is pa tent. Lateral plantar artery appears to be patent. The right anterior tibial artery is hypoplastic in appearance, but appears to be otherwise patent. The left common iliac, internal iliac, and external iliac artery is patent. The left common femoral a rtery is poorly visualized secondary to beam hardening artifact from a left total hip arthroplasty. N o overt stenosis is identified. Left profunda artery and SFA are patent. Portions of the popliteal ar irish completely obscured by beam hardening artifact from a left total knee replacement. Visualized po pliteal artery is patent. There is three-vessel runoff on the left. Nonvascular findings: Partially visualized liver is unremarkable. Cholelithiasis noted. Partially vis ualized adrenal glands demonstrate no gross abnormality. Spleen is nonvisualized. There is a subcenti meter left renal cyst.. The left kidney is partially visualized. The visualized kidneys are otherwise unremarkable. No bowel obstruction is seen. No evidence of free fluid or free air in the upper pelvi s is seen. Postoperative changes following distal colon resection noted. Evaluation of the bowel is limited give n lack of enteric contrast, phase of IV contrast, and beam hardening artifact from left hip prosthes is. IMPRESSION: 1.No hemodynamically significant aortoiliac, femoral popliteal, or definitive distal runoff vessel st enosis is identified. 2. Cholelithiasis CT DOSING PQRS STATEMENT: One or more of the following individualized dose reduction techniques were utilized for this examinat ion: 1. Automated exposure control 2. Adjustment of the mA and/or kV according to patient size 3. Use of iterative reconstruction technique Electronically signed by: Kimo Goodwin MD (10/26/2020 4:13 PM) [id number]
== END | disposition home or self-care (01) ==
LOC: SURG 09:11
PROVIDERS: ATTEND Family Medicine
DX: K80.20 Calculus of gallbladder without cholecystitis without obstruction (principal); N28.1 Cyst of kidney, acquired; I70.0 Atherosclerosis of aorta; I70.202 Unspecified atherosclerosis of native arteries of extremities, left leg
CPT/HCPCS: 75635; Q9967

== ENCOUNTER → 2020-12-05 | Outpatient (CLI) | payer MEDICARE ==
[2017-11-20 11:56] VITALS: BP 159/73
[~2020-12-05] MED LIST changes: +ACET500T68 PO; -IOHEXOL 350 MG/ML 100 ML VIAL. IV ONE; +LEUP3.75 IM
--- NOTE | 2020-12-05 20:49 | EKG ---
[facility] [address] [place] [address] Test Date: 2020-12-05 Test Time: 15:25:31 Pat Name: DAR HAMILTON Department: Room: Gender: M [employer] Coach: : 1945 Requested By: SYLVESTER GOULD Order Number: [id number] Reading MD: Noe Donnelly MD Measurements Intervals [place] Rate: 68 P: 0 HI: 180 QRS: -36 QRSD: 110 T: 19 QT: 418 QTc: 449 Interpretive Statements SINUS RHYTHM LAFB Electronically Signed On 12-07-2020 7:54:02 CDT by Noe Donnelly MD
== END ==
LOC: SURGPAT 14:52
PROVIDERS: ATTEND Neurological Surgery
DX: Z01.818 Encounter for other preprocedural examination (principal); M48.062 Spinal stenosis, lumbar region with neurogenic claudication; I10 Essential (primary) hypertension
CPT/HCPCS: 87641; 93005

== ENCOUNTER 2020-12-12 07:14 | Observation (INO) | payer MEDICARE ==
[2020-12-07 13:56] VITALS: BP 136/71
--- NOTE | 2020-12-11 21:08 | PREOP HP ---
DATE OF SERVICE: 12/12/2020 PREOP HISTORY AND PHYSICAL HISTORY OF PRESENT ILLNESS: The patient is a pleasant 75-year-old man who is having difficulty with low back pain and pain and numbness, which radiates into both of his legs. He has difficulty walking any length of time. He said the problem started in 06/2020 and has slowly worsened. Lying down helps. He had three epidural steroid injections without significant lasting relief. He has had physical therapy without lasting benefit. PAST MEDICAL HISTORY: Arthritis, colon cancer, hypertension, radiation treatments, diabetes. PAST SURGICAL HISTORY: Left hip replacement in 2007, knee replacement in 2019. CURRENT MEDICATIONS: Vitamin D, Lantus, metformin, atorvastatin, lisinopril, pioglitazone, amlodipine, glimepiride, Tylenol, meloxicam, gabapentin. FAMILY HISTORY: Diabetes, seizures, hypertension. SOCIAL HISTORY: Retired, , does not smoke or drink alcohol. REVIEW OF SYSTEMS: A 12-point review of systems was performed and is noncontributory except that mentioned above. PHYSICAL EXAMINATION: GENERAL: Alert, pleasant, in no acute distress. HEENT: Head is normocephalic and atraumatic. SKIN: Warm and dry. MUSCULOSKELETAL: Mild tenderness of the lower lumbar spine with palpation, lumbar paraspinal muscle bulk is normal, lumbar range of motion is restricted, normal range of motion of the upper and lower extremities bilaterally. EXTREMITIES: No clubbing, cyanosis or edema. NEUROLOGIC: Alert and oriented x 3. Strength is 5/5 in the bilateral upper and lower extremities, sensory was intact to light touch in the lower extremities bilaterally, he had unsteady gait. IMAGING: I reviewed a cervical MRI scan. On that study, there is mild cervical stenosis at C5-C6 and moderate stenosis at C6-C7. In the lumbar spine, there is severe stenosis at L3-L4 and L4-L5 and moderate stenosis at L5-S1. The stenosis is due to hypertrophic facet and ligamentum flavum as well as epidural lipomatosis. ASSESSMENT AND PLAN: I think at this point he would best be served with a laminectomy at L3, L4 and L5 with decompression of dura and nerve root. I explained that he does have some issues in his neck and that potentially in the future, he may require surgical decompression. Overall, the majority of his symptoms are related to his lumbar stenosis. I discussed surgery including the technique, the risk and the expected postoperative course. He understands and would like to go ahead. LELA DR: Carmelina TID: [id number] MTDD
[~2020-12-12] VITALS: Ht 193 cm; Wt 138.6 kg
[2020-12-12] VITALS (11 sets, daily range): BP systolic 129–176; BP diastolic 41–73
[~2020-12-12 07:14] MED LIST changes: +BUPIVACAINE-EPI 0.5%-1:200000 MPF 30 ML VIAL. ONE; +GELATIN SPONGE SIZE 100. ONE; +HYDROmorphone 2 MG/ML VIAL IVP PRN; +IV RINGERS,LACTATED 1000ML 1,000 ML IV SCH; +KETOROLAC 60 MG/2 ML VIAL. ONE; +MORPHINE SULFATE 2 MG/ML INJ. IVP PRN; +PROCHLORPERAZINE 10 MG/2 ML VIAL. IVP PRN; +THROMBIN TOPICAL 20,000 UNIT SPRAY.SYRN KIT TP ONE; +ceFAZolin SODIUM 3 GM in IV DEXTROSE 5% 100ML 100 ML IV PRN; +fentaNYL PF VIAL 100 MCG/2 ML VIAL IVP PRN
[2020-12-12] MEDS ORDERED: ROCURONIUM 50 MG/5 ML VIAL. ONE (07:52)
[2020-12-12] MEDS ORDERED: REMIFENTANIL 2 MG VIAL. IV ONE (07:52)
[2020-12-12] MEDS ORDERED: PHENYLEPHRINE 10 MG/ML VIAL. ONE ×2 (07:52→10:36)
[2020-12-12] MEDS ORDERED: PROPOFOL 10 MG/ML (20ML) VIAL. IV ONE (07:52)
[2020-12-12] MEDS ORDERED: PROPOFOL 50 ML IV ONE ×3 (07:52→10:33)
[2020-12-12] MEDS ORDERED: fentaNYL PF VIAL 100 MCG/2 ML VIAL ONE (07:52)
[2020-12-12] MEDS ORDERED: LIDOCAINE 2% PF 5 ML VIAL. ONE (07:52)
[2020-12-12] MEDS ORDERED: INSULIN LISPRO 100 UNIT/ML 3ML VIAL for OP,RR ONLY. SQ PRN (08:00)
[2020-12-12] MEDS ORDERED: ceFAZolin SODIUM 1 GM in IV NORMAL SALINE 1000ML BAG 1,000 ML IRR ONE (08:30)
[2020-12-12] MEDS ORDERED: ePHEDrine PF IN SALINE 50 MG/10 ML SYRINGE. IV ONE (09:01)
[2020-12-12] MEDS ORDERED: SEVOFLURANE > 120 MINUTES. IH ONE (09:55)
[2020-12-12] MEDS ORDERED: GLYCOPYRROLATE 1 MG/5 ML VIAL. ONE (09:55)
[2020-12-12] MEDS ORDERED: NEOSTIGMINE METHYLSULFATE 5 MG/5 ML SYRINGE. ONE (09:56)
[2020-12-12] MEDS ORDERED: REMIFENTANIL 1 MG VIAL. IV ONE (10:26)
[2020-12-12] MEDS ORDERED: HYDROmorphone 2 MG/ML VIAL ONE (10:52)
[2020-12-12] MEDS ORDERED: NALOXONE 0.4 MG/ML VIAL. IV PRN (12:45)
[2020-12-12] MEDS ORDERED: MAG HYDROX/ALUMINUM HYD/SIMETH 30 ML ORAL.SUSP PO PRN (12:45)
[2020-12-12] MEDS ORDERED: CALCIUM CARBONATE 500 MG TAB.CHEW PO PRN (12:45)
[2020-12-12] MEDS ORDERED: fentaNYL PF VIAL 100 MCG/2 ML VIAL IVP PRN (12:45)
[2020-12-12] MEDS ORDERED: ACETAMINOPHEN 325 MG TABLET. PO PRN (12:45)
[2020-12-12] MEDS ORDERED: ONDANSETRON PF 4 MG/2 ML VIAL. IVP PRN (12:45)
[2020-12-12] MEDS ORDERED: diphenhydrAMINE HCL 25 MG CAPSULE PO PRN (12:45)
[2020-12-12] MEDS ORDERED: DEXTROSE 50% 25 GM / 50ML DISP.SYRIN. IV PRN (12:45)
[2020-12-12] MEDS ORDERED: MAGNESIUM HYDROXIDE 2,400 MG/30 ML ORAL.SUSP. PO PRN (12:45)
[2020-12-12] MEDS ORDERED: 0.9 % SODIUM CHLORIDE 10 ML DISP.SYRIN. IV PRN (12:45)
[2020-12-12] MEDS ORDERED: HYDROcodone/APAP 5/325MG 1 TAB TABLET PO PRN (12:45)
--- NOTE | 2020-12-12 14:03 | OP ---
DATE OF SURGERY: 12/12/2020 PREOPERATIVE DIAGNOSES: Severe lumbar spinal stenosis and epidural lipomatosis L4-5 and L3-4. POSTOPERATIVE DIAGNOSES: Severe lumbar spinal stenosis and epidural lipomatosis L4-5 and L3-4. OPERATIONS PERFORMED: Lumbar laminectomy L3-4, L4-5 with decompression of dura and nerve root and removal of epidural lipomatosis. SURGEON: Kian Maddox M.D. CORROSION CONTROL ENGINEER: Odilia Taylor APRN, assisted with the exposures of the laminectomy at both levels as well as closure. The operation was done with multimodality monitoring including EMG, SSEP. We used fluoroscopy as well as microscopy. OPERATIVE INDICATIONS: The patient is a pleasant 75-year-old who developed severe back and bilateral lower extremity pain, which failed conservative measures and had the above-mentioned findings on imaging studies. I recommended lumbar microsurgical decompression. He understood the technique and risks and he wished to go ahead. DESCRIPTION OF PROCEDURE: Following general endotracheal anesthesia, the patient was positioned prone on the Gilberto table. Lumbar region was prepped and draped in standard fashion. ZULEIMA hose and AV impulse boots were applied for DVT prophylaxis. The microscope was draped, fluoroscopy was draped, and brought in the field. Monitoring was established. Ancef 3 grams was given less than 1 hour prior to initiation of surgery. Using fluoroscopic guidance, incision was made extending from L3-L5. I dissected down through skin and subcutaneous tissue, reflected the paraspinal muscles and placed 2 Manzo retractors. I have brought in the microscope and using the high-speed air drill, I removed the spinous processes of 3, 4, and 5. I then switched to a finer bit and again through the microscope I performed generous hemilaminotomies which were then crossed up from the right side and then crossed over the midline to the contralateral side. Ligamentum flavum was very thickened and I peeled this away at L4-5. It was densely scarred to the underlying dura. It took some work to free it up, but there was no problem. There were some large draining epidural veins at that level as well. After I decompressed the region and as I worked, I was able to remove the epidural lipomatous tissue and fully decompressed the entire region. Small amounts of bone wax were used at L4-5. At L3-4, there was again significant epidural lipomatosis. At both levels, I performed partial foraminotomies. At both levels, there was some disc bulging, but the disc was quite firm and no discectomies were warranted. At this point, then I felt I had an excellent decompression. I irrigated copiously with antibiotic solution. I removed the retractors, obtained hemostasis in the muscle, and closed the muscular layer as well as fascial layers and then I closed the skin with a 4-0 subcuticular stitch. I felt the surgery went very well. MAURA/KAREN DR: Adryan TID: [id number] MTDD
[2020-12-12] MEDS ORDERED: INSULIN LISPRO 100 UNIT/ML 3ML VIAL for OP,RR ONLY. SQ ONE (14:15)
--- NOTE | 2020-12-12 15:00 | NUR ---
received from recovery. Joe is alert and oriented x4. was here and will come back. He is able to move all extremities, denies numbness or tingling or pain. strength in lower extremities are equal. admission history is completed. did not bring his reading glasses. He has cell phone space and [employer] spacelift clothing and his cane.
[2020-12-12] MEDS: metFORMIN XR 500 MG TAB.ER.24H PO SCH (17:53)
[2020-12-12] MEDS: INSULIN LISPRO 300 UNITS/3 ML VIAL. SQ SCH (17:57)
--- NOTE | 2020-12-12 18:05 | NUR ---
has not voided urinal at bedside. oral fluids tolerating well
--- NOTE | 2020-12-12 20:24 | NUR ---
continues to deny pain or numbness. tolerating diet well. metformin and insulin given. daughters at bedside.
[2020-12-12] MEDS ORDERED: LATANOPROST 0.005% OPHTH SOLUTION 2.5ML BOTTLE. OU SCH (21:00)
[2020-12-12] MEDS ORDERED: INSULIN GLARGINE SYRINGE. SQ SCH (21:00)
[2020-12-12] MEDS: DOCUSATE SODIUM 100 MG CAPSULE. PO SCH (21:42)
[2020-12-12] MEDS: POTASSIUM CL 20MEQ-0.45% NACL 1,000 ML IV SCH (21:44)
[2020-12-12] MEDS: METHOCARBAMOL 750 MG TABLET PO PRN (21:49)
[2020-12-12] MEDS: HYDROcodone/APAP 5/325MG 1 TAB TABLET PO PRN (21:49)
[2020-12-13] MEDS: POTASSIUM CL 20MEQ-0.45% NACL 1,000 ML IV SCH (02:05)
[2020-12-13 02:38] VITALS: BP 133/60
[2020-12-13] MEDS: HYDROcodone/APAP 5/325MG 1 TAB TABLET PO PRN ×2 (06:00→12:53)
[2020-12-13 07:00] VITALS: BP 130/66
[2020-12-13] MEDS: METHOCARBAMOL 750 MG TABLET PO PRN (07:52)
[2020-12-13] MEDS: DOCUSATE SODIUM 100 MG CAPSULE. PO SCH (07:53)
[2020-12-13] MEDS: metFORMIN XR 500 MG TAB.ER.24H PO SCH (07:53)
[2020-12-13] MEDS: INSULIN LISPRO 300 UNITS/3 ML VIAL. SQ SCH ×2 (08:00→12:58)
[2020-12-13] MEDS ORDERED: ATORVASTATIN CALCIUM 40 MG TABLET. PO SCH (09:00)
[2020-12-13] MEDS ORDERED: PIOGLITAZONE 15 MG TABLET. PO SCH (09:00)
[2020-12-13] MEDS ORDERED: ACETAMINOPHEN 500 MG TABLET PO SCH (09:00)
[2020-12-13] MEDS ORDERED: LISINOPRIL 20 MG TABLET PO SCH (09:00)
--- NOTE | 2020-12-13 09:58 | NUR ---
Patients morning insulin held due to low blood sugar. It was rechecked after breakfast but this nurse spoke to the patient about his diabetes and he stated he didnt want the insulin to still be given. This nurse is in agreeance. Will monitor.
[2020-12-13 11:00] VITALS: BP 103/44
[2020-12-13] MEDS ORDERED: METH-562 PO (13:09)
[2020-12-13] MEDS ORDERED: HYDR-2761 PO (13:09)
[2020-12-13] MEDS ORDERED: DOCU100C28 PO (13:09)
--- NOTE | 2020-12-13 13:10 | DISCH ---
DISCHARGE INSTRUCTIONS Condition on Discharge Condition on Discharge: Stable Activity After Discharge Activity Instructions for Disc: Activity as tolerated, Avoid exertion Other activity instructions: no driving for a week Bathing Instructions: Shower-keep dressing dry Lifting Instructions after Dis: No heavy lifting, No pulling or pushing, Do not lift >10 pounds Exercise Instruction after Dis: Exercise per therapy, Progress as tolerated Driving Instructions after Dis: Do not drive Weight Bearing Status after Di: As tolerated Diet after Discharge Diet after Discharge: Diabetic No Calorie Level, Low Sodium 2 gm Liquid Texture: Thin Liquid Wound Incision Care Wound/Incision Care: Ice to area for comfort, May get incision wet Other wound/incision instructi: May shower 48 hours post op if dry. Remove dressing. Replace if desired. Checks after Discharge Checks after discharge: Check blood press - daily, Check blood sugar, ac/hs Contacting the DR. after DC Call your doctor for: Concerns you may have Follow-Up Follow Up With: Dr Gould or BEAU Singletary in two weeks [phone] SYLVESTER GOULD MD Dec 13, 2020 13:10
--- NOTE | 2020-12-13 13:36 | NUR ---
Patient left at 1336 with his . IV discontinued without complications. Dressing to lower back CDI. Discharge education gone over by this nurse, therapy, and the doctor prior to dismissal. Patient left with all his belongings. No concerns noted at discharge.
--- NOTE | 2020-12-14 17:23 | PATHOLOGY ---
[facility] Accession Number: [id number] . 01 Material submitted: . vertebral column - LUMBAR DECOMPRESSION. Modifiers: LUMBAR . 01 Clinical history: . LUMBAR STENOSIS WITH NEUROGENIC CLAUDICATION LUMBAR LAMINECTOMY L3-4, L4-5 LUMBAR STENOSIS . 02 Diagnosis: Segments of fibrocartilaginous tissue and bone, lumbar decompression: - Degenerative changes of fibrocartilaginous tissue. (JPM:pit; 12/14/2020) QTP 12/14/2020 1353 Local . 02 Comment: There is no evidence of an acute inflammatory process or malignancy. (JPM:pit; 12/14/2020) . . 02 Electronically signed: . Wilson Manzo MD, Pathologist NPI- [id number] . 01 Gross description: . The specimen is received in formalin, labeled "Joe Otto Jr and #1 lumbar decompression". It consists of multiple cisneros irregular soft and bony tissue fragments measuring 4.0 x 4.0 x 2.0 cm in aggregate. Beef Selector sections are submitted in A1 following decalcification. (MRF; 12/12/2020) MFE/MFE 12/12/2020 2014 Local . 02 Pathologist provided ICD-10: M51.36 . 02 CPT . 320781, [id number] Specimen Comment: A courtesy copy of this report has been sent to [phone], [phone] Specimen Comment: [id number] Specimen Comment: Report sent to / DR CARRANZA Performed at: 01 [facility] [address], [place], [place] [id number] MD Jak Treviño MD Phone: [phone] Performed at: 02 [facility] [address], [place] [id number] MD Wilson Manzo MD Phone: [phone]
--- NOTE | 2020-12-21 14:19 | NUR ---
Late entry - KCl/NaCl infusion started on 12/12/20 at 2144 and stopped on 12/13/20 at 1044.
== END 2020-12-13 13:38 | disposition home or self-care (01) ==
LOC: SURG 07:14 → 4 NORTH 12:38
PROVIDERS: ADMIT Neurological Surgery; ATTEND Neurological Surgery
DX: M48.061 Spinal stenosis, lumbar region without neurogenic claudication (principal); E11.9 Type 2 diabetes mellitus without complications; E88.2 Lipomatosis, not elsewhere classified; I10 Essential (primary) hypertension; M19.90 Unspecified osteoarthritis, unspecified site; Z82.49 Family history of ischemic heart disease and other diseases of the circulatory system; Z83.3 Family history of diabetes mellitus; Z85.038 Personal history of other malignant neoplasm of large intestine; Z96.642 Presence of left artificial hip joint; Z96.659 Presence of unspecified artificial knee joint
CPT/HCPCS: 63047; 63048; 82962; 88304; 88311; 96360; 96361; 97116; 97162; 97530; A4213; A4364; A4556; A4930; A6254; A6258; G0378; J0690; J1170; J1815; J1885; J2370; J2704; J2710; J3010; J3480; J3490; J7030; 76000; A4222; G0379